=== PATIENT | female | born 1960 | race African-American/Black ===

== ENCOUNTER 2019-09-02 13:03 | Emergency (ER) | payer OTHER ==
[~2019-09-02] VITALS: Ht 154.9 cm; Wt 75.0 kg
[2019-09-02] MEDS ORDERED: IBUPROFEN 600MG TABLET PO STA (14:58)
[2019-09-02 15:07] VITALS: BP 128/74
== END 2019-09-02 15:09 | disposition home or self-care (01) ==
LOC: ER 14:27
DX: K02.9 Dental caries, unspecified (principal); K04.7 Periapical abscess without sinus; Z98.890 Other specified postprocedural states
CPT/HCPCS: 99283